=== PATIENT | female | born 1990 | race Caucasian/White ===

== ENCOUNTER 2016-12-19 18:50 | Emergency (ER) | payer BC ==
[~2016-12-19 18:50] MED LIST: Sodium Chloride 0.9% 2,000 ML IV ONE
[2016-12-19] MEDS ORDERED: Ondansetron 4 MG/2 ML SDV ONE (18:53)
[2016-12-19] MEDS ORDERED: fentaNYL 100 MCG/2 ML SDV ONE (18:54)
[2016-12-19] MEDS ORDERED: Ondansetron 4 MG/2 ML SDV IVPUSH ONE (18:56)
[2016-12-19] MEDS ORDERED: Lactated Ringers 1,000 ML IV ONE (19:30)
[2016-12-19 19:34] LABS: CHLORIDE,CL 108 mmol/L (98-115); SODIUM,NA 145 mmol/L (136-145)
[2016-12-19] MEDS ORDERED: Midazolam 1 MG/ML 2 ML SDV IVPUSH ONE (19:36)
[2016-12-19] MEDS ORDERED: Succinylcholine 200 MG/10 ML MDV IV ONE (19:37)
[2016-12-19] MEDS: Propofol 200 MG/20 ML SDV IVPUSH PRN ×5 (19:37→19:52)
[2016-12-19] MEDS ORDERED: fentaNYL 100 MCG/2 ML SDV IVPUSH ONE (19:38)
[2016-12-19] MEDS ORDERED: Sodium Chloride 0.9% 2,000 ML ONE (19:49)
--- NOTE | 2016-12-19 20:41 | EDM.PDOC ---
Addendum entered and electronically signed by Jorge Rees PA-C 12/20/16 15 :40: Critical care time for this patient was 80 minutes. Original Note: ED HPI GENERAL MEDICAL PROBLEM - General Chief Complaint: Neuro Symptoms/Deficits Stated Complaint: POSSIBLE STROKE Time Seen by Provider: 12/19/16 18:50 Source of Information: Reports: Patient, EMS, Family () History Limitations: Reports: No Limitations - History of Present Illness INITIAL COMMENTS - FREE TEXT/NARRATIVE: Patient presents via ambulance from a hair salon in [place] where she was getting her hair done. She says she was sitting upright and suddenly developed an explosive right frontal headache and left-sided paralysis. According to the salon this was at 6:12 pm. Patient is awake, alert and able to communicate with some difficulty. Speech is slurred and there is significant left facial droop. She denies any pain except the continuing pain in the head. Denies pain in neck, chest or abdomen. She cannot move her left arm or leg and cannot feel anything there either. She doesn't feel the IV being placed in left hand. tells me she is taking no medications and has no medical problems at all. She has two children at home with the youngest just [address] is obtained immediately. We were notified of this patient about 20 minutes prior to her arrival so we had anesthesia here and I had obtained acceptance from [facility] in [place] (which is where her wants to go via phone call) prior to pt's arrival. [facility] is arranging Air transportation for us. Treatments MEAL ROOM HAND: Reports: IV/IO - Related Data Allergies Allergy/AdvReac Type Severity Reaction Status Date / Time No Known Drug Allergies Allergy Cannot Verified 12/19/16 20:19 Remember Home Meds: Home Meds . [No Known Home Meds] 12/19/16 [History] ED ROS GENERAL - Review of Systems Review Of Systems: ROS reveals no pertinent complaints other than HPI. ED EXAM, NEURO - Physical Exam Exam: See Below Exam Limited By: No Limitations General Appearance: Alert, Anxious Eye Exam: Right Eye: Proptosis (right eyelid was droopy), Bilateral Eye: Abnormal EOM (eyes tracked together but deviated to right initially but most of time she could make eye contact in coordinated fashion), PERRL Ears: Normal External Exam, Hearing Grossly Normal Nose: Normal Inspection, No Blood Throat/Mouth: Normal Lips, No Airway Compromise (initially), Dysphagia (trouble swallowing; emesis a few times) Head Exam: Atraumatic, Normocephalic, Other (significant left facial droop). No : Facial Swelling, Facial Tenderness Neck: Normal Inspection, Supple, Non-Tender, Full Range of Motion Respiratory/Chest: No Respiratory Distress, Lungs Clear, Normal Breath Sounds, No Accessory Muscle Use Cardiovascular: Normal Peripheral Pulses, Regular Rate, Rhythm, No Edema, No JVD , No Murmur GI/Abdominal: Normal Bowel Sounds, Soft, Non-Tender, No Organomegaly, No Distention Neurological: Alert, Oriented x 3, Other (Pt can move and raise right arm and leg with 5/5 nipple maker on right; complete paralysis and numbness of left arm, leg and foot) Extremities: No: Pedal Edema, Leg Pain, Limited Range of Motion, Mottled, Pallor , Redness Psychiatric: Anxious Skin Exam: Warm, Dry, Intact, Normal Color, No Rash Course - Orders/Labs/Meds Orders: Active Orders 24 hr Category Date Time Status Head wo Cont [CT] Routine Exams 12/19/16 Taken Labs: Laboratory Tests 12/19/16 12/19/16 12/19/16 Range/Units 19:10 19:10 19:10 WBC 6.3 (5.0-10.0) 10^3/uL RBC 4.49 (3.80-5.50) 10^6/uL Hgb 13.1 (12.0-16.0) g/dL Hct 38.8 (37.0-47.0) % MCV 86.3 (82.0-92.0) fL MCH 29.2 (27.0-31.0) pg MCHC 33.8 (32.0-36.0) g/dL RDW 12.0 (11.5-14.5) % Plt Count 158 (150-300) 10^3/uL MPV 7.5 (7.4-10.4) fL Neut % (Auto) 41.1 L (50.0-70.0) % Lymph % (Auto) 50.6 H (20.0-40.0) % [place] % (Auto) 6.4 (2.0-8.0) % Eos % (Auto) 1.3 (1.0-3.0) % Baso % (Auto) 0.6 (0.0-1.0) % Neut # (Auto) 2.6 (2.5-7.0) 10^3/uL Lymph # (Auto) 3.2 (1.0-4.0) 10^3/uL [place] # (Auto) 0.4 (0.1-0.8) 10^3/uL Eos # (Auto) 0.1 (0.1-0.3) 10^3/uL Baso # (Auto) 0.0 (0.0-0.1) 10^3/uL PT 11.6 H (8.9-11.4) SEC INR 1.1 (0.9-1.1) APTT 22.4 (20.8-31.2) SEC Sodium 145 (136-145) mmol/L Potassium 4.0 (3.3-5.3) mmol/L Chloride 108 (98-115) mmol/L Carbon Dioxide 25.3 (21.0-32.0) mmol/L BUN 13 (6-25) mg/dL Creatinine 0.74 (0.51-1.17) mg/dL Est Cr Clr Drug Dosing TNP Estimated GFR (MDRD) > 60 mL/min Glucose 105 (70-110) mg/dL Calcium 8.1 L (8.7-10.3) mg/dL Urine HCG, Qual (NEGATIVE) 12/19/16 Range/Units 19:15 WBC (5.0-10.0) 10^3/uL RBC (3.80-5.50) 10^6/uL Hgb (12.0-16.0) g/dL Hct (37.0-47.0) % MCV (82.0-92.0) fL MCH (27.0-31.0) pg MCHC (32.0-36.0) g/dL RDW (11.5-14.5) % Plt Count (150-300) 10^3/uL MPV (7.4-10.4) fL Neut % (Auto) (50.0-70.0) % Lymph % (Auto) (20.0-40.0) % [place] % (Auto) (2.0-8.0) % Eos % (Auto) (1.0-3.0) % Baso % (Auto) (0.0-1.0) % Neut # (Auto) (2.5-7.0) 10^3/uL Lymph # (Auto) (1.0-4.0) 10^3/uL [place] # (Auto) (0.1-0.8) 10^3/uL Eos # (Auto) (0.1-0.3) 10^3/uL Baso # (Auto) (0.0-0.1) 10^3/uL PT (8.9-11.4) SEC INR (0.9-1.1) APTT (20.8-31.2) SEC Sodium (136-145) mmol/L Potassium (3.3-5.3) mmol/L Chloride (98-115) mmol/L Carbon Dioxide (21.0-32.0) mmol/L BUN (6-25) mg/dL Creatinine (0.51-1.17) mg/dL Est Cr Clr Drug Dosing Estimated GFR (MDRD) mL/min Glucose (70-110) mg/dL Calcium (8.7-10.3) mg/dL Urine HCG, Qual Negative (NEGATIVE) Meds: Medications Discontinued Medications Generic Name Dose Route Start Last Admin Trade Name Lisette PRN Reason Stop Dose Admin Fentanyl Confirm 12/19/16 18:54 Sublimaze Administered 12/19/16 18:55 Dose 100 mcg .ROUTE .STK-MED ONE Sodium Chloride Confirm 12/19/16 19:49 Normal Saline Administered 12/19/16 19:50 Dose 2,000 mls @ as directed .ROUTE .STK-MED ONE Ondansetron HCl Confirm 12/19/16 18:53 Zofran Administered 12/19/16 18:54 Dose 8 mg .ROUTE .STK-MED ONE - Re-Assessments/Exams Free Text/Narrative Re-Assessment/Exam: 12/19/16 20:57 Medication administration times, vitals and other information was recorded by Margarito and is included on separate paperwork. Patient arrived awake and alert. She knew her name, birthdate, day and year. She was vomiting so Zofran was given. She was having no airway issues until about 40 minutes after her arrival, which was just after we had results on her head CT and were preparing to give TPA (after consulting with Dr. Guzman ( neurologist) at [facility] in [place], when she suddenly stopped breathing and became unconscious. She was immediately intubated by anesthesia without any medications needed for RSI. The [facility] physician and Dr. Guzman advised to hold the TPA with the unconscious state. The flight crew arrived shortly after this and she was changed over to their support and taken to [place]. She had left facial droop, complete left side paralysis and numbness throughout ER course. Vitals remained stable throughout however. Pt's and cousin are driving to [place] to meet her there. Initial NIH assessment is 23 performed by RN. Departure - Departure Time of Disposition: 20:30 Disposition: DC/Tfer to Acute Hospital 02 Condition: serious Clinical Impression: Acute ischemic stroke - Discharge Information Forms: ED Department Discharge - My Orders Last 24 Hours: My Active Orders 12/19/16 Head wo Cont [CT] Routine - Assessment/Plan Last 24 Hours: My Active Orders 12/19/16 Head wo Cont [CT] Routine
== END 2016-12-19 20:10 ==
LOC: KA.ED 18:50
DX: I63.9 Cerebral infarction, unspecified (principal)
CPT/HCPCS: 70450; 80048; 81025; 85025; 85610; 85730; 96361; 96374; 99291; 99292; J2250; J2405; J2704; J7030; J7120